=== PATIENT | female | born 1975 | race American Indian/Alaskan Native ===

== ENCOUNTER 2020-08-06 09:19 | Outpatient (CLI) | payer OTHER ==
--- NOTE | 2020-08-07 08:07 | Mammography Report ---
LEFT DIGITAL DIAGNOSTIC MAMMOGRAM WITH CAD CONVENTIONAL, 08/06/2020 LEFT LIMITED BREAST ULTRASOUND CLINICAL INFORMATION / INDICATION: Follow-up nodularity TECHNIQUE: Digital left mammographic imaging was performed. Limited ultrasound was performed. This ex amination was interpreted with the benefit of Computer-Aided Detection (CAD) analysis. COMPARISON: Bilateral mammograms 12/19/2019, left mammogram 01/02/2020, left breast ultrasound 01/02/2020 FINDINGS: Breast Density: There are scattered areas of fibroglandular density. MAMMOGRAPHIC FINDINGS: Densities in the lateral left breast appear stable. No other changes are seen. ULTRASOUND FINDINGS: Targeted ultrasound evaluation was performed of the area of interest. The superf icial elongated diffusely hyperechoic lesion seen on prior study is no longer detected at the 2:00 po sition. In the 3:00 position, 7 cm from the nipple, a mixed echogenicity ovoid wider than tall lesion is seen with a hyperechoic rim and hypoechoic central portion with some internal echoes. This has a maximal diameter today of 16 mm which by my measurements is larger than the maximal diameter of just under 12 mm previously. No vascularity is seen. IMPRESSION: Though mammographically there is not a significant change, the cystic type structure in t he 3:00 position appears to be increasing in size. This has a thickened wall and may be a complex cys t. I would suggest ultrasound-guided biopsy. The previous diffusely hyperechoic lesion seen at 2:00 i s no longer visualized. Follow up recommendation: Ultrasound-guided biopsy of one area as above BI-RADS Category 4: Suspicious for Malignancy. A "normal" or negative report should not discourage follow up or biopsy of a clinically significant f inding. A written summary of these findings will be mailed to the patient. The patient will be entered into a mammography reporting system which will generate a reminder letter for the patient's next appointmen t at the appropriate interval. According to the [employer], yearly mammograms are recommended starting at age 40 and continuing as long as a woman is in good health. Breast MRI is recommended for women with an cassi roximately 20-25% or greater lifetime risk of breast cancer, including women with a strong family his tory of breast or ovarian cancer and women who have been treated for Hodgkin's disease. Signer Name: Justo Schroeder MD Signed: 08/07/2020 8:02 AM Workstation Name: [id number]
== END 2020-08-06 09:20 | disposition home or self-care (01) ==
LOC: MAMMO 09:19
PROVIDERS: ATTEND Obstetrics & Gynecology
DX: R92.8 Other abnormal and inconclusive findings on diagnostic imaging of breast (principal)

== ENCOUNTER 2020-08-26 08:03 | Outpatient (CLI) | payer OTHER ==
--- NOTE | 2020-08-26 11:02 | Mammography Report ---
LEFT DIAGNOSTIC MAMMOGRAM INDICATION: Left breast lesion at the 3:00 position. COMPARISON: 08/06/2020, 01/02/2020, 12/19/2019. FINDINGS: Left breast CC and MLO projection mammograms were obtained. These document the accurate loc ation of a U-shaped biopsy marker at the previously identified 3:00 lesion. Of note, a 2:00 circumscr ibed oval lesion is again noted and not significantly changed. On the recent 08/06/2020 ultrasound no definite correlate was identified. IMPRESSION: Accurate location of a U-shaped biopsy marker at site of left breast biopsy at the 3:00 position. Of note, there is a left 2:00 partially obscured oval low-density lesion. This was identified previou sly, but no sonographic correlate was identified on the recent exam (08/06/2020). Assuming today's bio psy results are found to be benign, a six-month follow-up left breast diagnostic mammogram and ultras ound would be recommended with attention to the 2:00 finding. BI-RADS Category 4: Suspicious for Malignancy. Signer Name: Arian Kelly MD Signed: 08/26/2020 10:57 AM Workstation Name: [id number]
--- NOTE | 2020-08-26 14:17 | Ultrasound Report ---
ULTRASOUND-GUIDED CORE NEEDLE BIOPSY Left BREAST WITH CLIP PLACEMENT COMPARISON: 08/06/2020. INDICATION: Left breast lesion at the 3:00 position. FINDINGS: Informed consent was obtained. The lesion within the left breast at the 3:00 position, 6 cm from the nipple, identified with ultrasound. The overlying skin was cleansed with chloro prep and local anesth esia was obtained with a 1% lidocaine solution. Under ultrasound guidance a 14-gauge spring loaded co re biopsy needle was advanced to the lesion. A total of 4 core samples were obtained. A U-shaped biop sy marker was placed to jailene the site of the biopsy. Specimen samples were placed in formalin and sen t to pathology for analysis. Patient tolerated the procedure well and no immediate complications were identified. A post procedure mammogram demonstrates accurate placement of the biopsy marker. IMPRESSION: Technically successful ultrasound-guided core biopsy of left breast lesion at the 3:00 position with placement of a U-shaped biopsy marker. Of note, there is a left 2:00 partially obscured oval low-density lesion. This was identified previou sly, but no sonographic correlate was identified on the recent exam (08/06/2020). Assuming today's bio psy results are found to be benign, a six-month follow-up left breast diagnostic mammogram and ultras ound would be recommended with attention to the 2:00 finding. An addendum will be added to this report once pathology results are available. Signer Name: Arian Kelly MD Signed: 08/26/2020 2:13 PM Workstation Name: [id number]
== END 2020-08-26 08:04 | disposition home or self-care (01) ==
LOC: SPVWC 08:03
PROVIDERS: ATTEND Surgery
DX: N63.23 Unspecified lump in the left breast, lower outer quadrant (principal); R92.2 Inconclusive mammogram; N64.89 Other specified disorders of breast; Z79.899 Other long term (current) drug therapy
CPT/HCPCS: 88305

== ENCOUNTER 2020-12-30 08:39 | Outpatient (CLI) | payer OTHER ==
--- NOTE | 2020-12-30 12:25 | Mammography Report ---
DIGITAL SCREENING MAMMOGRAM WITH CAD, 12/30/2020 CLINICAL INFORMATION / INDICATION: Routine screening mammography. SCREENING MAMMO Z12.31 TECHNIQUE: Digital bilateral 2D mammography was obtained in the craniocaudal and mediolateral obliqu e projections. This examination was interpreted with the benefit of Computer-Aided Detection analysis . COMPARISON: 12/19/2019 through 08/26/2020. FINDINGS: Breast Density: There are scattered areas of fibroglandular density. No dominant mass, suspicious calcifications, or architectural distortion in either breast. There is benign-appearing nodularity bilaterally. A left biopsy clip laterally is again noted. No new abnormality is seen. IMPRESSION: No mammographic evidence of malignancy. Follow up recommendation: Routine yearly BI-RADS Category 2: Benign. A "normal" or negative report should not discourage follow up or biopsy of a clinically significant f inding. A written summary of these findings will be mailed to the patient. The patient will be entered into a mammography reporting system which will generate a reminder letter for the patient's next appointmen t at the appropriate interval. The [employer] recommends yearly mammograms starting at age 40 and continuing as l tati as a woman is in good health. Breast MRI is recommended for women with an approximate 20-25% or greater lifetime risk of breast cancer, including women with a strong family history of breast or ova jemima cancer or who have been treated for Hodgkin's disease. Signer Name: Servando Beyer MD Signed: 12/30/2020 12:20 PM Workstation Name: [id number]
== END 2020-12-30 08:40 | disposition home or self-care (01) ==
LOC: SPVWC 08:39
PROVIDERS: ATTEND Surgery
DX: Z12.31 Encounter for screening mammogram for malignant neoplasm of breast (principal); N64.89 Other specified disorders of breast
CPT/HCPCS: 77067

== ENCOUNTER 2022-01-06 08:09 | Outpatient (CLI) | payer OTHER ==
--- NOTE | 2022-01-07 17:04 | Mammography Report ---
DIGITAL SCREENING MAMMOGRAM WITH CAD, 01/06/2022 CLINICAL INFORMATION / INDICATION: Routine screening mammography. TECHNIQUE: Digital bilateral 2D mammography was obtained in the craniocaudal and mediolateral obliqu e projections. This examination was interpreted with the benefit of Computer-Aided Detection analysis . COMPARISON: 12/30/2020 12/19/2019 FINDINGS: Breast Density: There are scattered areas of fibroglandular density. No dominant mass, suspicious calcifications, or architectural distortion in either breast. Left breas t biopsy clip noted. Overall, no interval change. IMPRESSION: No mammographic evidence of malignancy. Follow up recommendation: Routine yearly screening mammogram. BI-RADS Category 2: BENIGN. A "normal" or negative report should not discourage follow up or biopsy of a clinically significant f inding. A written summary of these findings will be mailed to the patient. The patient will be entered into a mammography reporting system which will generate a reminder letter for the patient's next appointmen t at the appropriate interval. The [employer] recommends yearly mammograms starting at age 40 and continuing as l tati as a woman is in good health. Breast MRI is recommended for women with an approximate 20-25% or greater lifetime risk of breast cancer, including women with a strong family history of breast or ova jemima cancer or who have been treated for Hodgkin's disease. Signer Name: Yaritza Moran MD Signed: 01/07/2022 5:00 PM Workstation Name: [id number]
== END 2022-01-06 08:10 | disposition home or self-care (01) ==
LOC: MAMMO 08:09
PROVIDERS: ATTEND Obstetrics & Gynecology
DX: Z12.31 Encounter for screening mammogram for malignant neoplasm of breast (principal)
CPT/HCPCS: 77067